=== PATIENT | male | born 1960 | race Caucasian/White ===

== ENCOUNTER → 2018-08-15 | Outpatient (CLI) | payer BC ==
[2018-08-15 07:47] LABS: BASOPHILS # (AUTO) 0.1 (0.0-0.1); BASOPHILS % 1.7 % (0.0-1.0); EOSINOPHILS # (AUTO) 0.1 (0.0-0.4); EOSINOPHILS % 2.3 % (0.0-6.0); HEMATOCRIT 51.8 % (38.2-49.6); HEMOGLOBIN 18.1 g/dL (14.0-18.0); LYMPHOCYTES # (AUTO) 2.4 (1.0-3.2); LYMPHOCYTES % 47.4 % (18.0-39.1); MEAN CORPUSCULAR HEMOGLOBIN 32.4 pg (28-32); MEAN CORPUSCULAR HGB CONC 34.9 g/dL (31-35); MEAN CORPUSCULAR VOLUME 92.8 fL (81-99); MONOCYTES # (AUTO) 0.5 (0.2-0.8); MONOCYTES % 10.3 % (4.4-11.3); NEUTROPHILS % 37.9 % (38.7-80.0); PLATELET COUNT 207 x10e3/uL (140-360); RED BLOOD COUNT 5.58 x10e6/uL (4.3-5.7)
[2018-08-15 08:14] LABS: ALBUMIN 4.3 g/dL (3.5-5.0); ALBUMIN/GLOBULIN RATIO 1.2 (0.8-2.0); ANION GAP 13.8 mmol/L (8-16); CHOL/HDL RATIO 2.7 (3.9-4.7); CREATININE, SERUM 1.24 mg/dL (0.72-1.25); POTASSIUM 3.8 mmol/L (3.5-5.1)
[2018-08-15 08:37] LABS: FREE T4 (FREE THYROXINE) 0.74 ng/dL (0.9-1.8); THYROID STIMULATING HORMONE 0.931 uIU/mL (0.350-4.940)
== END ==
LOC: LAB 07:29
PROVIDERS: ATTEND Family Medicine
DX: Z00.00 Encounter for general adult medical examination without abnormal findings (principal); I10 Essential (primary) hypertension; E29.1 Testicular hypofunction
CPT/HCPCS: 36415; 80053; 80061; 82670; 83690; 84152; 84402; 84439; 84443; 84479; 85025

== ENCOUNTER 2018-11-11 14:21 | Inpatient (IN) | payer BC ==
[~2018-11-11] VITALS: Ht 180.3 cm; Wt 83.9 kg
[2018-11-11] MEDS ORDERED: SODIUM CHLORIDE 0.9% 1000ML 1,000 ML IV STA (14:25)
[2018-11-11] MEDS ORDERED: KETOROLAC TROMETHAMINE 30 MG/ML VIAL ONE (14:28)
[2018-11-11] MEDS ORDERED: ONDANSETRON HCL INJ 2MG/ML 2ML 2 MG/ML VIAL ONE (14:28)
[2018-11-11] MEDS ORDERED: HYDROMORPHONE 2MG/ML 2 MG/ML ML ONE (14:28)
[2018-11-11] MEDS ORDERED: SODIUM CHLORIDE 0.9% 1000ML 1,000 ML ONE (14:29)
[2018-11-11] MEDS ORDERED: ONDANSETRON HCL INJ 2MG/ML 2ML 2 MG/ML VIAL IV NR (14:30)
[2018-11-11] MEDS ORDERED: KETOROLAC TROMETHAMINE 30 MG/ML VIAL IV NR (14:30)
[2018-11-11 14:36] LABS: BASOPHILS # (AUTO) 0.1 (0.0-0.1); EOSINOPHILS % 0.5 % (0.0-6.0); HEMATOCRIT 45.6 % (38.2-49.6); HEMOGLOBIN 15.6 g/dL (14.0-18.0); LYMPHOCYTES % 24.2 % (18.0-39.1); MEAN CORPUSCULAR HEMOGLOBIN 32.4 pg (28-32); MEAN CORPUSCULAR HGB CONC 34.2 g/dL (31-35); MEAN CORPUSCULAR VOLUME 94.6 fL (81-99); MONOCYTES # (AUTO) 0.6 (0.2-0.8); MONOCYTES % 6.7 % (4.4-11.3); NEUTROPHILS # (AUTO) 5.6 (2.1-6.9); NEUTROPHILS % 67.2 % (38.7-80.0); PLATELET COUNT 194 x10e3/uL (140-360); RED BLOOD COUNT 4.82 x10e6/uL (4.3-5.7); RED CELL DISTRIBUTION WIDTH 13.2 % (11.7-14.4)
[2018-11-11] MEDS ORDERED: HYDROMORPHONE 2MG/ML 2 MG/ML ML IV NR (14:45)
[2018-11-11 14:50] LABS: INR 1.08; PROTHROMBIN TIME 14.5 seconds (11.9-14.5)
[2018-11-11 14:51] LABS: PARTIAL THROMBOPLASTIN TIME 27.3 seconds (23.8-35.5)
[2018-11-11 14:52] LABS: ALANINE AMINOTRANSFERASE 18 IU/L (0-55); ALBUMIN 3.8 g/dL (3.5-5.0); ALBUMIN/GLOBULIN RATIO 1.1 (0.8-2.0); ALKALINE PHOSPHATASE 56 IU/L (40-150); ANION GAP 16.1 mmol/L (8-16); BLOOD UREA NITROGEN 17 mg/dL (7-26); BUN/CREATININE RATIO 15 (6-25); CALCIUM 8.7 mg/dL (8.4-10.2); CARBON DIOXIDE 24 mmol/L (22-29); CHLORIDE 106 mmol/L (98-107); CREATINE KINASE 250 IU/L (30-200); CREATININE, SERUM 1.13 mg/dL (0.72-1.25); EST GLOMERULAR FILTRATION RATE > 60 ML/MIN (60-); GLUCOSE 167 mg/dL (74-118); MAGNESIUM 2.5 MG/DL (1.3-2.1); POTASSIUM 4.1 mmol/L (3.5-5.1); SODIUM 142 mmol/L (136-145)
--- NOTE | 2018-11-11 15:05 | NUR ---
placed patient on non-rebreather. patient back in room. family at bedside.
[2018-11-11] MEDS ORDERED: LOW DOSE ASPIRI81 MG PO (15:16)
[2018-11-11] MEDS ORDERED: NP THYROID90 MG PO (15:16)
[2018-11-11] MEDS ORDERED: DIOVAN80 MG PO (15:16)
[2018-11-11] MEDS ORDERED: CARVEDILOL6.25 MG PO (15:16)
--- NOTE | 2018-11-11 15:29 | Diagnostic Imaging Report ---
LEFT SHOULDER X-RAY - 2 VIEWS HISTORY: ^FALL ^[id number] ^[id number] COMPARISON: None available. FINDINGS: Bones: Possible fracture deformity of a mid left rib. Osseous alignment is within normal limits. Joints: The joint spaces are well-maintained. Soft tissues: Extensive subcutaneous air in the left supraclavicular region and along the left chest wall. Linear density along the left lower lobe may represent lung contusion. IMPRESSION: No acute abnormalities of the left shoulder. Extensive subcutaneous emphysema in the left supraclavicular and left chest wall. Possible fracture deformity of the mid left rib. Follow-up CT chest report for further details. Signed by: Dr. Wendy Wynne M.D. on 11/11/2018 3:26 PM
--- NOTE | 2018-11-11 15:33 | Diagnostic Imaging Report ---
EXAMINATION: Head and cervical spine CT without contrast. HISTORY: Status post fall the day before, trauma, pain COMPARISON: None. TECHNIQUE: Multidetector axial images were obtained without contrast from the foramen magnum to the vertex and through the cervical spine. The images were reconstructed using brain and bone algorithms. Thin section brain images were reformatted into coronal and sagittal planes. Dose modulation, iterative reconstruction, and/or weight based adjustment of the mA/kV was utilized to reduce the radiation dose to as low as reasonably achievable. HEAD CT FINDINGS: Skull/difficult/: No lytic or blastic lesions. No fractures. Parenchyma: Normal. No mass, hemorrhage or CT evidence of acute vascular insult. Brain volume: Mild generalized parenchymal volume loss. Ventricles: No hydrocephalus or displacement. Arteries: No density suggestive of thrombus. Dural sinuses: No abnormal density. Extra-axial spaces: No abnormal density. Foramen magnum: No mass, Chiari malformation, or basilar invagination. Sella: No obvious mass. Paranasal/mastoid sinuses: Imaged portions unremarkable. CERVICAL SPINE CT FINDINGS: Alignment:Normal alignment and lordosis. Soft tissues: Prominent subcutaneous emphysema in the left lateral and posterior neck tracking deep into the neck fascial planes to include the prevertebral/retropharyngeal and visceral spaces, extending to the partially visualized upper mediastinum. No discrete cervical tracheal or esophageal injury is seen in the provided images. Vertebrae: Normal height and density. No acute fracture, infection or neoplasm. Degenerative changes: C1-C2: Normal C2-C3: Normal C3-C4: Normal C4-C5: Mild facet arthrosis without stenoses C5-C6: Mild uncovertebral arthrosis without stenosis C6-C7: Mild uncovertebral arthrosis without stenosis C7-T1: Normal IMPRESSION: Head CT: 1. No acute posttraumatic intracranial abnormality, particularly no hemorrhage. 2. Mild generalized parenchymal volume loss. Cervical spine CT: 1. No acute fractures or dislocations. 2. Prominent left/posterior neck subcutaneous emphysema extending into the upper mediastinum, please see dictation of chest CT performed on the same day for further detail. 3. Mild chronic degenerative changes as described. Note: Acute post traumatic spinal cord, vascular or ligamentous injury cannot adequately be assessed with CT. Signed by: Dr. Emerald Keating M.D. on 11/11/2018 3:29 PM
--- NOTE | 2018-11-11 15:49 | Diagnostic Imaging Report ---
EXAM: CT Chest, Abdomen and Pelvis WITH contrast INDICATION: ^TRAUMA PROTOCOL ^[id number] ^[id number] COMPARISON: Left shoulder x-ray 11/11/2018 TECHNIQUE: Chest, abdomen and pelvis were scanned utilizing a multidetector helical scanner from the lung apex to the ischial tuberosities after administration of IV contrast. Coronal and sagittal reformations were obtained. Trauma protocol was performed. Scan was performed during arterial phase through the chest and early portal venous phase through the abdomen and pelvis. No oral contrast was given. IV CONTRAST: 100 mL of Isovue-300 ORAL CONTRAST: None RADIATION DOSE: Total DLP: 1160.5 mGy*cm Estimated effective dose: DLP x 0.015 mSv COMPLICATIONS: None FINDINGS: LINES and TUBES: None. LUNGS AND AIRWAYS: Moderate amount of left lower lobe ground glass opacities consistent with lung contusion. Right lung is clear. PLEURA: Small left pneumothorax measuring up to 1 cm in thickness, mainly surrounding the anterior aspect of the heart. Small left lower hemothorax, measuring up to 1.2 cm in thickness. No effusion on the right. No pneumothorax on the right. HEART AND MEDIASTINUM: Moderate amount of pneumomediastinum extending down to the mid esophagus. No anterior mediastinal hematoma. The thyroid gland is normal. No mediastinal, hilar or axillary lymphadenopathy. The heart is normal in size. There is no pericardial effusion. The thoracic aorta appears normal. The pulmonary arteries are unremarkable. Coronary artery calcifications. The proximal arch branch vessels are patent. No findings to suggest vessel injury surrounding the pneumomediastinum. HEPATOBILIARY: No focal hepatic lesions. No biliary ductal dilation. GALLBLADDER: No radio-opaque stones or sludge. No wall thickening. SPLEEN: No splenomegaly. PANCREAS: No focal masses or ductal dilatation. ADRENALS: No adrenal nodules KIDNEYS/URETERS: Kidneys enhance symmetrically. No hydronephrosis. No cystic or solid mass lesions. No stones. GI TRACT: No abnormal distention, wall thickening, or evidence of bowel obstruction. Appendix is normal. PELVIC ORGANS/BLADDER: Unremarkable. LYMPH NODES: No lymphadenopathy. VESSELS: Unremarkable. PERITONEUM / RETROPERITONEUM: No free air or fluid. BONES: Acute mildly displaced fracture of the lateral aspect of the left sixth rib, better seen on series 5, image 88. There is a small adjacent hematoma in the chest wall, measuring 0.8 cm in thickness without active contrast extravasation. No additional fractures in the chest, abdomen or pelvis. SOFT TISSUES: Extensive subcutaneous emphysema along the left lower neck, left lateral chest wall, and anterior lower right chest wall. There is also moderate amount of subcutaneous air along the left anterior, lateral and posterior abdominal pelvic khan and contraleteral lower anterior chest and upper right abdominal khan. Metallic clips in both anterior pelvic regions near the inguinal canal may relate to hernia repairs. IMPRESSION: 1. Large amount of subcutaneous air along the neck, left anterior and lateral chest, abdominopelvic khan with air extending to the contralateral right lower chest and abdominal khan. 2. Acute mildly displaced fracture of the left sixth rib with associated small left pneumothorax, small left hemothorax, and left lower lobe lung contusion. 3. No mediastinal hematoma or acute aortic traumatic injury on limited evaluation. 4. No acute post traumatic injury in the abdomen and pelvis. These findings were communicated to Grace (nurse practitioner) on 11/11/2018 at 3:35 PM. Signed by: Dr. Wendy Wynne M.D. on 11/11/2018 3:45 PM
--- NOTE | 2018-11-11 15:50 | Diagnostic Imaging Report ---
EXAMINATION: CHEST SINGLE (PORTABLE) INDICATION: ^SMALL TRAUMATIC PNEUMO, ASSESS WORSENING ^[id number] ^[id number] COMPARISON: Left shoulder x-ray 11/11/[address] chest abdomen and pelvis 11/11/2018 FINDINGS: AP view TUBES and LINES: None. LUNGS: Lungs are well inflated. Left lower lobe lung contusion. Right lung is clear. PLEURA: Small left pneumothorax better seen on CT chest. HEART AND MEDIASTINUM: Extensive subcutaneous air in the left supraclavicular region and left chest wall. Moderate amount of pneumomediastinum is better seen on CT. The cardiac silhouette is within normal limits. BONES AND SOFT TISSUES: Fracture deformity of the left sixth rib. Subcutaneous air along the left chest wall and supraclavicular region. UPPER ABDOMEN: No free air under the diaphragm. IMPRESSION: Posttraumatic abnormality and on the left chest including left sixth rib fracture, subcutaneous air, small pneumothorax, lung contusion, and pneumomediastinum, better seen on sequence CT chest. Signed by: Dr. Wendy Wynne M.D. on 11/11/2018 3:47 PM
[2018-11-11] MEDS ORDERED: ONDANSETRON HCL INJ 2MG/ML 2ML 2 MG/ML VIAL IV PRN (16:00)
--- OUTSIDE RECORDS SUMMARY | 2018-11-11 16:10 | XMS REPORT ---
Author Author [facility] Address Unknown Phone Unavailable Care Team Providers Care Blending Operator Name Role Phone Catia KEITH Unavailable Unavailable Problems This patient has no known problems. Allergies, Adverse Reactions, Alerts This patient has no known allergies or adverse reactions. Medications This patient has no known medications. Results Test Description Test Time Test Comments Text Results Atomic Results Result Comments CHEST SINGLE (PORTABLE) 2018-11-11 15:45:00 [place] [address] Patient Name: GEO DURAND MR #: [id number] : 1960 Age/Sex: 58/M Req #: [id number] Adm Physician: Ordered by: ELVIS KEITH MD Report #: [id number] Location: ER Room/Bed: Procedure: [id number] DX/CHEST SINGLE (PORTABLE) Exam Date: 11/11/18 Exam Time: 1521 REPORT STATUS: Signed EXAMINATION: CHEST SINGLE (PORTABLE) INDIC ATION: SMALL TRAUMATIC PNEUMO, ASSESS WORSENING [id number] COMPARISON: Left shoulder x-ray 11/11/[address] chest abdomen and pelvis 11/11/2018 FINDINGS: AP view TUBES and LINES: None. LUNGS: Lungs are well inflated. Left lower lobe lung contusion. Right lung is clear. PLEURA: Small left pneumothorax better seen on CT chest. HEART AND MEDIASTINUM: Extensive subcutaneous air in the left supraclavicular region and left chest wall. Moderate amount of pneumomediastinum is better seen on CT. The cardiac silhouette is within normal limits. BONES AND SOFT TISSUES: Fracture deformity of the left sixth rib. Subcutaneous air along the left chest wall and supraclavicular region. UPPER ABDOMEN: No free air under the diaphragm. IMPRESSION: Posttraumatic abnormality and on the left chest including left sixth rib fracture, subcutaneous air, small pneumothorax, lung contusion, and pneumomediastinum, better seen on sequence CT chest. Signed by: Dr. Stefani Magallanes M.D. on 11/11/2018 3:47 PM Dictated By: STEFANI MAGALLANES MD 46 Transcribed By: JES on 11/11/181546 COPY TO: ELVIS KEITH MD CT ABDOMEN/PELVIS W 2018-11-11 15:26:00 [place] [address] Patient Name: GEO DURAND MR #: [id number] : 1960 Age/Sex: 58/M Req #: [id number] Adm Physician: Ordered by: ELVIS KEITH MD Report #: [id number] Location: ER Room/Bed: Procedure: [id number] CT/CT ABDOMEN/PELVIS W Exam Date: 11/11/18 Exam Time: 1436 REPORT STATUS: Signed EXAM: CT Chest, Abdomen and Pelvis WITH contrast I NDICATION: TRAUMA PROTOCOL [id number] COMPARISON: Left shoulder x-ray 11/11/2018 TECHNIQUE: Chest, abdomen and pelvis were scanned utilizing a multidetector helical scanner from the lung apex to the ischial tuberosities after administration of IV contrast. Coronal and sagittal reformations were obtained. Trauma protocol was performed. Scan was performed during arterial phase through the chest and early portal venous phase through the abdomen and pelvis. No oral contrast was given. IV CONTRAST: 100 mL of Isovue-300 ORAL CONTRAST: None RADIATION DOSE: Total DLP: 1160.5 mGy*cm Estimated effective dose: DLP x 0.015 mSv COMPLICATIONS: None FINDINGS: LINES and TUBES: None. LUNGS AND AIRWAYS: Moderate amount of left lower lobe ground glass opacities consistent with lung contusion. Right lung is clear. PLEURA: Small left pneumothorax measuring up to 1 cm in thickness, mainly surrounding the anterior aspect of the heart. Small left lower hemothorax, measuring up to 1.2 cm in thickness. No effusion on the right. No pneumothorax on the right. HEART AND MEDIASTINUM: Moderate amount of pneumomediastinum extending down to the mid esophagus. No anterior mediastinal hematoma. The thyroid gland is normal. No mediastinal, hilar or axillary lymphadenopathy. The heart is normal in size. There is no pericardial effusion. The thoracic aorta appears normal. The pulmonary arteries are unremarkable. Coronary artery calcifications. The proximal arch branch vessels are patent. No findings to suggest vessel injury surrounding the pneumomediastinum. HEPATOBILIARY: No focal hepatic lesions. No biliary ductal dilation. GALLBLADDER: No radio-opaque stones or sludge. No wall thickening. SPLEEN: No splenomegaly. PANCREAS: No focal masses or ductal dilatation. ADRENALS: No adrenal nodules KIDNEYS/URETERS: Kidneys enhance symmetrically. No hydronephrosis. No cystic or solid mass lesions. No stones. GI TRACT: No abnormal distention, wall thickening, or evidence of bowel obstruction. Appendix is normal. PELVIC ORGANS/BLADDER: Unremarkable. LYMPH NODES: No lymphadenopathy. VESSELS: Unremarkable. PERITONEUM / RETROPERITONEUM: No free air or fluid. BONES: Acute mildly displaced fracture of the lateral aspect of the left sixth rib, better seen on series 5, image 88. There is a small adjacent hematoma in the chest wall, measuring 0.8 cm in thickness without active cont rast extravasation. No additional fractures in the chest, abdomen or pelvis. SOFT TISSUES: Extensive subcutaneous emphysema along the left lower neck, left lateral chest wall, and anterior lower right chest wall. There is also moderate amount of subcutaneous air along the left anterior, lateral and posterior abdominal pelvic khan and contraleteral lower anterior chest and upper right abdominal khan. Metallic clips in both anterior pelvic regions near the inguinal canal may relate to hernia repairs. IMPRESSION: 1. Large amount of subcutaneous air along the neck, left anterior and lateral chest, abdominopelvic khan with air extending to the contralateral right lower chest and abdominal khan. 2. Acute mildly displaced fracture of the left sixth rib with associated small left pneumothorax, small left hemothorax, and left lower lobe lung contusion. 3. No mediastinal hematoma or acute aortic traumatic injury on limited evaluation. 4. No acute post traumatic injury in the abdomen and pelvis. These findings were communicated to Mrs. Edwards (nurse practitioner) on 11/11/2018 at 3:35 PM. Signed by: Dr. Stefani Magallanes M.D. on 11/11/2018 3:45 PM Dictated By: STEFANI MAGALLANES MD 154 Transcribed By: JES on 11/11/181544 COPY TO: ELVIS KEITH MD CT CHEST W 2018-11-11 15:26:00 [place] [address] Patient Name: GEO DURAND MR #: [id number] : 1960 Age/Sex: 58/M Req #: [id number] Adm Physician: Ordered by: ELVIS KEITH MD Report #: [id number] Location: ER Room/Bed: Procedure: [id number] CT/CT CHEST W Exam Date: 11/11/18 Exam Time: 1436 REPORT STATUS: Signed EXAM: CT Chest, Abdomen and Pelvis WITH contrast INDICATION: TRAUMA PROTOCOL [id number] COMPARISON: Left shoulder x-ray 11/11/2018 TECHNIQUE: Chest, abdomen and pelvis were scanned utilizing a multidetector helical scanner from the lung apex to the ischial tuberosities after administration of IV contrast. Coronal and sagittal reformations were obtained. Trauma protocol was performed. Scan was performed during arterial phase through the chest and early portal venous phase through the abdomen and pelvis. No oral contrast was given. IV CONTRAST: 100 mL of Isovue-300 ORAL CONTRAST: None RADIATION DOSE: Total DLP: 1160.5 mGy*cm Estimated effective dose: DLP x 0.015 mSv COMPLICATIONS: None FINDINGS: LINES and TUBES: None. LUNGS AND AIRWAYS: Moderate amount of left lower lobe ground glass opacities consistent with lung contusion. Right lung is clear. PLEURA: Small left pneumothorax measuring up to 1 cm in thickness, mainly surrounding the anterior aspect of the heart. Small left lower hemothorax, measuring up to 1.2 cm in thickness. No effusion on the right. No pneumothorax on the right. HEART AND MEDIASTINUM: Moderate amount of pneumomediastinum extending down to the mid esophagus. No anterior mediastinal hematoma. The thyroid gland is normal. No mediastinal, hilar or axillary lymphadenopathy. The heart is normal in size. There is no pericardial effusion. The thoracic aorta appears normal. The pulmonary arteries are unremarkable. Coronary artery calcifications. The proximal arch branch vessels are patent. No findings to suggest vessel injury surrounding the pneumomediastinum. HEPATOBILIARY: No focal hepatic lesions. No biliary ductal dilation. GALLBLADDER: No radio-opaque stones or sludge. No wall thickening. SPLEEN: No splenomegaly. PANCREAS: No focal masses or ductal dilatation. ADRENALS: No adrenal nodules KIDNEYS/URETERS: Kidneys enhance symmetrically. No hydronephrosis. No cystic or solid mass lesions. No stones. GI TRACT: No abnormal distention, wall thickening, or evidence of bowel obstruction. Appendix is normal. PELVIC ORGANS/BLADDER: Unremarkable. LYMPH NODES: No lymphadenopathy. VESSELS: Unremarkable. PERITONEUM / RETROPERITONEUM: No free air or fluid. BONES: Acute mildly displaced fracture of the lateral aspect of the left sixth rib, better seen on series 5, image 88. There is a small adjacent hematoma in the chest wall, measuring 0.8 cm in thickness without active contrast extravasation. No additional fractures in the chest, abdomen or pelvis. SOFT TISSUES: Extensive subcutaneous emphysema along the left lower neck, left lateral chest wall, and anterior lower right chest wall. There is also moderate amount of subcutaneous air along the left anterior, lateral and posterior abdominal pelvic khan and contraleteral lower anterior chest and upper right abdominal khan. Metallic clips in both anterior pelvic regions near the inguinal canal may relate to hernia repairs. IMPRESSION: 1. Large amount of subcutaneous air along the neck, left anterior and lateral chest, abdominopelvic khan with air extending to the contralateral right lower chest and abdominal khan. 2. Acute mildly displaced fracture of the left sixth rib with associated small left pneumothorax, small left hemothorax, and left lower lobe lung contusion. 3. No mediastinal hematoma or acute aortic traumatic injury on limited evaluation. 4. No acute post traumatic injury in the abdomen and pelvis. These findings were communicated to Mrs. Edwards (nurse practitioner) on 11/11/2018 at 3:35 PM. Signed by: Dr. Stefani Magallanes M.D. on 11/11/2018 3:45 PM Dictated By: STEFANI MAGALLANES MD 1545 Transcribed By: JES on 11/11/18 1545 COPY TO: ELVIS KEITH MD CT CERVICAL SPINE WO 2018-11-11 15:22:00 [place] [address] Patient Name: GEO DURAND MR #: [id number] : 1960 Age/Sex: 58/M Req #: [id number] Adm Physician: Ordered by: ELVIS KEITH MD Report #: [id number] Location: ER Room/Bed: Procedure: [id number] CT/CT CERVICAL SPINE WO Exam Date: 11/11/18 Exam Time: 1436 REPORT STATUS: Signed EXAMINATION: Head and cervical spine CT without contras t. HISTORY: Status post fall the day before, trauma, pain COMPARISON: None. TECHNIQUE: Multidetector axial images were obtained without contrast from the foramen magnum to the vertex and through the cervical spine. The images were reconstructed using brain and bone algorithms. Thin section brain images were reformatted into coronal and sagittal planes. Dose modulation, iterative reconstruction, and/or weight based adjustment of the mA/kV was utilized to reduce the radiation dose to as low as reasonably achievable. HEAD CT FINDINGS: Skull/difficult/: No lytic or blastic lesions. No fractures. Parenchyma: Normal. No mass, hemorrhage or CT evidence of acute vascular insult. Brain volume: Mild generalized parenchymal volume loss. Ventricles: No hydrocephalus or displacement. Arteries: No density suggestive of thrombus. Dural sinuses: No abnormal density. Extra-axial spaces: No abnormal density. Foramen magnum: No mass, Chiari malformation, or basilar invagination. Sella: No obvious mass. Paranasal/mastoid sinuses: Imaged portions unremarkable. CERVICAL SPINE CT FINDINGS: Alignment:Normal alignment and lordosis. Soft tissues: Prominent subcutaneous emphysema in the left lateral and posterior neck tracking deep into the neck fascial planes to include the preve rtebral/retropharyngeal and visceral spaces, extending to the partially visualized upper mediastinum. No discrete cervical tracheal or esophageal injury is seen in the provided images. Vertebrae: Normal height and density. No acute fracture, infection or neoplasm. Degenerative changes: C1-C2: Normal C2-C3: Normal C3-C4: Normal C4-C5: Mild facet arthrosis without stenoses C5-C6: Mild uncovertebral arthrosis without stenosis C6-C7: Mild uncovertebral arthrosis without stenosis C7-T1: Normal IMPRESSION: Head CT: 1. No acute posttraumatic intracranial abnormality, particularly no hemorrhage. 2. Mild generalized parenchymal volume loss. Cervical spine CT: 1. No acute fractures or dislocations. 2. Prominent left/posterior neck subcutaneous emphysema extending into the upper mediastinum, please see dictation of chest CT performed on the same day for further detail. 3. Mild chronic degenerative changes as described. Note: Acute post traumatic spinal cord, vascular or ligamentous injury cannot adequately be assessed with CT. Signed by: Dr. Radha Keating M.D. on 11/11/2018 3:29 PM Dictated By: RADHA KEATING MD 152 Transcribed By: JES on 11/11/18 1529 COPY TO: ELVIS KEITH MD CT BRAIN WO 2018-11-11 15:22:00 [place] [id number] [place] [id number] Patient Name: GEO DURAND MR #: [id number] : 1960 Age/Sex: 58/M Req #: [id number] Adm Physician: Ordered by: ELVIS KEITH MD Report #: [id number] Location: ER Room/Bed: Procedure: [id number] CT/CT BRAIN WO Exam Date: 11/11/18 Exam Time: 1436 REPORT STATUS: Signed EXAMINATION: Head and cervical spine CT without contrast. HISTORY: Status post fall the day before, trauma, pain COMPARISON: None. TECHNIQUE: Multidetector axial images were obtained without contrast from the foramen magnum to the vertex and through the cervical spine. The images were reconstructed using brain and bone algorithms. Thin section brain images were reformatted into coronal and sagittal planes. Dose modulation, iterative reconstruction, and/or weight based adjustment of the mA/kV was utilized to reduce the radiation dose to as low as reasonably achievable. HEAD CT FINDINGS: Skull/difficult/: No lytic or blastic lesions. No fractures. Parenchyma: Normal. No mass, hemorrhage or CT evidence of acute vascular insult. Brain volume: Mild generalized parenchymal volume loss. Ventricles: No hydrocephalus or displacement. Arteries: No density suggestive of thrombus. Dural sinuses: No abnormal density. Extra-axial spaces: No abnormal density. Foramen magnum: No mass, Chiari malformation, or basilar invagination. Sella: No obvious mass. Paranasal/mastoid sinuses: Imaged portions unremarkable. CERVICAL SPINE CT FINDINGS: Alignment:Normal alignment and lordosis. Soft tissues: Prominent subcutaneous emphysema in the left lateral and posterior neck tracking deep into the neck fascial planes to include the prevertebral/r etropharyngeal and visceral spaces, extending to the partially visualized upper mediastinum. No discrete cervical tracheal or esophageal injury is seen in the provided images. Vertebrae: Normal height and density. No acute fracture, infection or neoplasm. Degenerative changes: C1-C2: Normal C2-C3: Normal C3-C4: Normal C4-C5: Mild facet arthrosis without stenoses C5-C6: Mild uncovertebral arthrosis without stenosis C6-C7: Mild uncovertebral arthrosis without stenosis C7-T1: Normal IMPRESSION: Head CT: 1. No acute posttraumatic intracranial abnormality, particularly no hemorrhage. 2. Mild generalized parenchymal volume loss. Cervical spine CT: 1. No acute fractures or dislocations. 2. Prominent left/posterior neck subcutaneous emphysema extending into the upper mediastinum, please see dictation of chest CT performed on the same day for further detail. 3. Mild chronic degenerative changes as described. Note: Acute post traumatic spinal cord, vascular or ligamentous injury cannot adequately be assessed with CT. Signed by: Dr. Radha Keating M.D. on 11/11/2018 3:29 PM Dictated By: RADHA KEATING MD 1529 Transcribed By: JES on 11/11/18 1529 COPY TO: ELVIS KEITH MD SHOULDER LEFT COMPLETE 2018-11-11 15:02:00 [place] [address] Patient Name: GEO DURAND MR #: [id number] : 1960 Age/Sex: 58/M Req #: [id number] Adm Physician: Ordered by: ELVIS KEITH MD Report #: [id number] Location: Room/Bed: Procedure: [id number] DX/SHOULDER LEFT COMPLETE Exam Date: 11/11/18 Exam Time: 1450 REPORT STATUS: Signed LEFT SHOULDER X-RAY - 2 VIEWS HISTORY: FALL [id number] COMPARISON: None available. FINDINGS: Bones: Possible fracture deformity of a mid left rib. Osseous alignment is within normal limits. Joints: The joint spaces are well-maintained. Soft tissues: Extensive subcutaneous air in the left supraclavicular region and along the left chest wall. Linear density along the left lower lobe may represent lung contusion. IMPRESSION: No acute abnormalities of the left shoulder. Extensive subcutaneous emphysema in the left supraclavicular and left chest wall. Possible fracture deformity of the mid left rib. Follow-up CT chest report for further details. Signed by: Dr. Stefani Magallanes M.D. on 11/11/2018 3:26 PM Dictated By: STEFANI MAGALLANES MD 1526 Transcribed By: JES on 11/11/18 1526 COPY TO: ELVIS KEITH MD
[2018-11-11] MEDS: SODIUM CHLORIDE 0.9% 1000ML 1,000 ML IV SCH (16:21)
[2018-11-11] MEDS: HYDROMORPHONE 2MG/ML 2 MG/ML ML IV PRN ×2 (16:21→22:09)
--- NOTE | 2018-11-11 16:30 | NUR ---
RECEIVED PATIENT FROM ER. PATIENT A/O X3, EVEN RESPIRATIONS NO SIGNS OF DISTRESS. RIGHT AC IV WITH NS @ 125 CC/HR. NO DISCOMFORT AT THIS TIME. VITAL SIGNS STABLE. SKIN INTACT, NO EDEMA. TELE #11 SR. CALL LIGHT IN REACH WILL CONTINUE TO MONITOR.
[2018-11-11 16:56] VITALS: BP 148/84
[2018-11-11 17:00] VITALS: BP 148/84
[2018-11-11 17:07] VITALS: BP 148/84
--- NOTE | 2018-11-11 18:44 | Diagnostic Imaging Report ---
EXAMINATION: CHEST SINGLE (PORTABLE) INDICATION: ^AT 6PM, COMPARE PNEUMOTHORAX ^[id number] ^1803 COMPARISON: Chest radiograph 11/11/2018 1520 3:00 PM FINDINGS: AP view TUBES and LINES: None. LUNGS: Lungs are well inflated. Left lower lobe lung contusion is unchanged. Right lung is clear. PLEURA: Small left apical pneumothorax, decreased. Small left hemothorax is not well-visualized on this exam. HEART AND MEDIASTINUM: Small pneumomediastinum is unchanged. Cardiac silhouette is stable. BONES AND SOFT TISSUES: No acute osseous lesion. Persistent large amount of subcutaneous air along the supraclavicular region and left chest wall. UPPER ABDOMEN: No free air under the diaphragm. IMPRESSION: Small left apical pneumothorax, appear decreased since prior exam. Otherwise, no interval change. Signed by: Dr. Wendy Wynne M.D. on 11/11/2018 6:41 PM
--- NOTE | 2018-11-11 19:06 | NUR ---
SPOKE TO DR. Meet HAMMONDS AT THIS TIME. NEW ORDERS RCV FOR PORTABLE CHEST XRAY AT 2200 AND CHEST 2VIEWS AT 0600.
--- NOTE | 2018-11-11 19:34 | NUR ---
SPOKE TO DR. MADRIGAL AT THIS TIME REGARDING PT C/O PAIN. NEW ORDER FOR LIDOCAINE PATCH RCV.
[2018-11-11] MEDS ORDERED: LIDOCAINE 5% PATCH TP SCH (19:45)
[2018-11-11 20:00] VITALS: BP_SYST 148; BP_SYST 157; BP_DIAS 84; BP_DIAS 87
--- NOTE | 2018-11-11 20:08 | NUR ---
SPOKE TO DR. CAMPOS AT THIS TIME. NEW ORDERS RCV FOR PRN ATIVAN IV AND TO DC TELE.
--- NOTE | 2018-11-11 21:08 | Consultation ---
DATE OF CONSULTATION: Pulmonary Consultation REASON FOR THE CONSULT: Pneumothorax. 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 He was running after his son and fell on the shoulder resulting in some pain in the rib. When he came in, he had subcutaneous emphysema and CT of the chest showed small pneumothorax. All his labs are within normal limits. I was consulted for pneumothorax. REVIEW OF SYSTEMS: Pain around the ribs 5 and 7. Denies any nausea, vomiting, or diarrhea. PAST MEDICAL HISTORY: None. PHYSICAL EXAMINATION: VITAL SIGNS: Temperature 98.5, pulse of 96, blood pressure 156/100, respiratory rate of 15 to 20, O2 saturation 94%. CHEST: Subcutaneous emphysema and crepitus. Mildly reduced air entry on the left side, otherwise clear. HEART: S1, S2 audible. ABDOMEN: Soft. EXTREMITIES: No pedal edema. NEUROLOGIC: Awake and alert. LABORATORY DATA: White count of 8000, hemoglobin 15, platelets 194. Chemistries within normal limits. CT of the chest official report is pending. I have reviewed the images, it is showing evidence of very small pneumothorax and pneumomediastinum. ASSESSMENT: A 58-year-old male traumatic subcutaneous emphysema, possible rib fracture. However, the official report of CT is pending. PLAN: I have discussed the case with Dr. Cory Reis as well. The patient has mild to moderate subcutaneous emphysema. He is not in respiratory distress. Continue the patient on non-rebreather. Pneumothorax is very small, however, we will need followup chest x-rays. If it gets bigger, we will need a chest tube. No need for any intervention for pneumomediastinum. This was discussed with Dr. Reis. I have asked Dr. Jose to consult for Dr. Reis as well. MD RORY Collazo/JEEVAN /[id number]
--- NOTE | 2018-11-11 22:24 | Diagnostic Imaging Report ---
EXAMINATION: CHEST SINGLE (PORTABLE) COMPARISON: Chest x-ray 1814 hours, CT chest 11/11/2018 INDICATION: Pneumothorax follow-up ^pneumothorax ^[id number] ^2154 DISCUSSION: Frontal view of the chest obtained at 2147 hours. HEART AND MEDIASTINUM: Cardiomediastinal silhouette is stable. Mediastinal air identified on CT is not visible by x-ray. LINES: None. LUNGS: Left basilar atelectasis or pulmonary contusion is stable. Right lung is clear PLEURA: Medial left pneumothorax is now visible. Left apical pneumothorax is redemonstrated. There is approximately 14 mm of separation between the visceral or parietal pleura (previously, 6 mm). Small left hemothorax. BONES AND SOFT TISSUES: Diffuse subcutaneous emphysema of the lower left neck and left chest is stable. Stable fracture of the left sixth rib. IMPRESSION: Enlarging left apical pneumothorax. Medial pneumothorax is now visible. Small left hemothorax. Stable subcutaneous emphysema. Signed by: Dr. Sid Gonzalez MD on 11/11/2018 10:21 PM
[2018-11-11 23:28] LABS: CREATINE KINASE MB 1.2 ng/mL (0-5.0)
[2018-11-12] VITALS (7 sets, daily range): BP systolic 130–149; BP diastolic 55–98
--- NOTE | 2018-11-12 | NUR ---
DR. CAMPOS DOING ROUNDS AT THIS TIME. SAID OK TO CONTINUE HOME MEDS
[2018-11-12] MEDS: SODIUM CHLORIDE 0.9% 1000ML 1,000 ML IV SCH ×4 (00:03→20:21)
[2018-11-12] MEDS: LORAZEPAM INJ 2 MG/ML VIAL IV PRN ×4 (00:03→22:27)
[2018-11-12] MEDS: HYDROMORPHONE 2MG/ML 2 MG/ML ML IV PRN ×4 (03:40→20:18)
--- NOTE | 2018-11-12 06:55 | NUR ---
SPOKE TO DR. MADRIGAL AT THIS TIME. NEW ORDER RCV FOR CT CHEST WO
--- NOTE | 2018-11-12 06:59 | Diagnostic Imaging Report ---
EXAMINATION: CHEST 2 VIEWS INDICATION: Pneumothorax follow-up ^pneumothorax ^[id number] ^0630 COMPARISON: Chest x-ray 11/11/2018 FINDINGS: PA and lateral views TUBES and LINES: None. LUNGS: Left pneumothorax is redemonstrated. At the apex, there is 3.3 cm of separation between the visceral and parietal pleura (previously, 1.4 cm). Small left hydrothorax is similar. Subsegmental atelectasis in the left lung base and in the right hilar region. HEART AND MEDIASTINUM: Stable and midline. BONES AND SOFT TISSUES: Left rib fracture is stable. Diffuse subcutaneous emphysema is similar. UPPER ABDOMEN: No free air under the diaphragm. IMPRESSION: Continued enlargement of left hydropneumothorax without evidence of tension. Tube decompression is recommended. Small left pneumothorax. Signed by: Dr. Sid Gonzalez MD on 11/12/2018 6:56 AM
--- NOTE | 2018-11-12 07:07 | NUR ---
PAGED DR. HAMMONDS REGARDING WORSENING PNEUMOTHORAX.
[2018-11-12 07:09] LABS: BASOPHILS # (AUTO) 0.1 (0.0-0.1); EOSINOPHILS # (AUTO) 0.2 (0.0-0.4); EOSINOPHILS % 2.5 % (0.0-6.0); HEMATOCRIT 40.8 % (38.2-49.6); HEMOGLOBIN 13.9 g/dL (14.0-18.0); LYMPHOCYTES # (AUTO) 2.3 (1.0-3.2); LYMPHOCYTES % 34.3 % (18.0-39.1); MEAN CORPUSCULAR HEMOGLOBIN 32.3 pg (28-32); MEAN CORPUSCULAR HGB CONC 34.1 g/dL (31-35); MEAN CORPUSCULAR VOLUME 94.9 fL (81-99); MONOCYTES # (AUTO) 0.5 (0.2-0.8); NEUTROPHILS # (AUTO) 3.7 (2.1-6.9); NEUTROPHILS % 54.9 % (38.7-80.0); PLATELET COUNT 170 x10e3/uL (140-360)
[2018-11-12 07:42] LABS: ALANINE AMINOTRANSFERASE 17 IU/L (0-55); ALBUMIN 3.5 g/dL (3.5-5.0); ALBUMIN/GLOBULIN RATIO 1.1 (0.8-2.0); ALKALINE PHOSPHATASE 50 IU/L (40-150); BLOOD UREA NITROGEN 13 mg/dL (7-26); BUN/CREATININE RATIO 15 (6-25); CALCIUM 7.7 mg/dL (8.4-10.2); CARBON DIOXIDE 25 mmol/L (22-29); CHLORIDE 107 mmol/L (98-107); CREATININE, SERUM 0.87 mg/dL (0.72-1.25); EST GLOMERULAR FILTRATION RATE > 60 ML/MIN (60-); GLUCOSE 82 mg/dL (74-118); SODIUM 139 mmol/L (136-145)
--- NOTE | 2018-11-12 07:43 | NUR ---
RECEIVED PATIENT AND WALKING ROUNDS COMPLETE. PATIENT AWAKE SITTING UP IN BED AT THIS TIME, NO SIGNS OF DISTRESS. CALL LIGHT IN REACH WILL CONTINUE TO MONITOR.
[2018-11-12] MEDS ORDERED: LIDOCAINE HCL 1% 2 ML AMP INJ ONE (07:45)
--- NOTE | 2018-11-12 07:51 | Diagnostic Imaging Report ---
EXAM: CT Chest without contrast INDICATION: Pneumothorax. COMPARISON: Chest radiograph 11/12/2018. CT chest 11/11/2018. TECHNIQUE: Chest was scanned utilizing a multidetector helical scanner from the lung apex through the level of the adrenal glands without administration of IV contrast. Coronal and sagittal reformations were obtained. Routine protocol was performed. RADIATION DOSE: Total DLP: 558.8 mGy*cm Dose modulation, iterative reconstruction, and/or weight based adjustment of the mA/kV was utilized to reduce the radiation dose to as low as reasonably achievable. COMPLICATIONS: None FINDINGS: LINES/ TUBES: None. LUNGS AND AIRWAYS: The central airways are patent. Moderate left lower lobe groundglass opacities, consistent with lung contusion. Interval decrease in aeration in the left lower lobe and lingula with partial atelectasis. Minimal subsegmental atelectasis in the right middle lobe and right lower lobe. PLEURA: Large left-sided predominantly air-filled hydropneumothorax. Appearance is similar to that of chest radiograph performed on 11/12/2018, with an air gap measuring up to 3.5 cm. There is a small left basilar layering pleural effusion/hemothorax. HEART AND MEDIASTINUM: No evidence of lymphadenopathy. Again noted is moderate pneumomediastinum. The thyroid gland is unremarkable. No cardiomegaly or pericardial effusion. Coronary atherosclerosis. UPPER ABDOMEN: Limited non-contrast views of the upper abdominal viscera are unremarkable. BONES: Unchanged appearance of acute mildly displaced fracture of the left lateral sixth rib with small adjacent hematoma. SOFT TISSUES: Extensive left-sided lower neck and chest wall and back subcutaneous emphysema, extending into the partially visualized left lateral abdominal wall soft tissues. IMPRESSION: Large left hydropneumothorax without evidence of tension. The appearance is similar to chest radiograph on 11/12/2018, but increased in size from chest radiographs on 11/11/2018, Extensive left sided subcutaneous emphysema and mildly displaced left lateral sixth rib fracture as above. Signed by: Dr. Angeline Banegas MD on 11/12/2018 7:48 AM
--- NOTE | 2018-11-12 07:55 | NUR ---
SPOKE WITH DR. HAMMONDS REGARDING CHEST CT. CHEST TUBE WILL BE PLACED TODAY. CALL LIGHT IN REACH WILL CONTINUE TO MONITOR.
[2018-11-12 08:01] LABS: CREATINE KINASE 230 IU/L (30-200)
[2018-11-12] MEDS ORDERED: LIDOCAINE HCL 2% LOCAL 20 ML VIAL ONE (08:03)
[2018-11-12] MEDS ORDERED: LIDOCAINE HCL 2% LOCAL 20 ML VIAL INJ ONE (08:15)
[2018-11-12] MEDS ORDERED: HYDROCODONE/APAP 7.5MG-325MG 1 EA TAB PO PRN (08:45)
[2018-11-12] MEDS: KETOROLAC TROMETHAMINE 30 MG/ML VIAL IV PRN (08:46)
--- NOTE | 2018-11-12 08:56 | Diagnostic Imaging Report ---
EXAMINATION: CHEST SINGLE (PORTABLE) INDICATION: Status post chest tube placement COMPARISON: Chest radiograph 11/12/[address] chest 11/12/2018. FINDINGS: TUBES and LINES: Interval placement of a left upper chest tube. There is an acute angulation near the distal catheter. LUNGS: Interval increase in aeration of the left lung status post chest tube placement. Patchy opacities in the left lower lung. The right lung is clear. PLEURA: Interval decrease in size of left-sided pneumothorax with a small medial component, measuring up to 0.8 cm. HEART AND MEDIASTINUM: The cardiomediastinal silhouette is unremarkable. BONES AND SOFT TISSUES: Persistent extensive subcutaneous emphysema along the left lateral chest wall. Unchanged appearance of acute displaced left lateral sixth rib fracture. UPPER ABDOMEN: No free air under the diaphragm. IMPRESSION: Interval placement of a left-sided chest tube with decreased left-sided pneumothorax, measuring up to 0.8 cm medially. Improved aeration in the left lung. The distal aspect of the catheter demonstrates an acute angulation, suggest clinical correlation for kinking. Opacities in the left lower lung, consistent with contusion and atelectasis, as seen on CT chest from 11/12/2018. Signed by: Dr. Angeline Banegas MD on 11/12/2018 8:52 AM
[2018-11-12] MEDS: CARVEDILOL 3.125 MG TAB PO SCH (09:00)
[2018-11-12] MEDS ORDERED: NON-FORMULARY MEDICATION (Thyroid,Pork (Np Thyroid) 90 MG) PO SCH (09:00)
[2018-11-12] MEDS: THYROID 60 MG TAB PO SCH (09:00)
[2018-11-12] MEDS ORDERED: NON-FORMULARY MEDICATION (Aspirin (Low Dose Aspirin Ec) 81 MG) PO SCH (09:00)
[2018-11-12] MEDS ORDERED: NON-FORMULARY MEDICATION (Carvedilol 6.25 MG) PO SCH (09:00)
[2018-11-12] MEDS ORDERED: ASPIRIN 81 MG ENTERIC COATED PO SCH (09:00)
[2018-11-12] MEDS: VALSARTAN 80 MG TAB PO SCH (09:00)
--- NOTE | 2018-11-12 09:30 | NUR ---
CHEST TUBE IN PLACE CONNECTED TO SUCTION. VITALS STABLE, NO SIGNS OF DISTRESS. CALL LIGHT IN REACH WILL CONTINUE TO MONITOR.
--- NOTE | 2018-11-12 12:00 | Consultation ---
DATE OF CONSULTATION: 11/12/2018 CONSULTING PHYSICIAN: Tk Vasquez, Interventional Cardiology. REASON FOR CONSULTATION: Shortness of breath. 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 Fall was left lateral and resulted in some focal area of discomfort. Later in the evening, he was found to have crepitus in his lateral chest associated with worsening discomfort and shortness of breath, reason why he went to the ER for further evaluation. In the ER, he was found to have on imaging studies, a small pneumothorax for which he was admitted for further observation and placed on oxygen. He also was noted to have small amount of pneumomediastinum. We were consulted to further evaluate. On telemetry, he has been in sinus rhythm. Followup imaging studies revealed large left hydropneumothorax without evidence of tension, increase in size from previous day, and extensive left-sided subcutaneous emphysema with mildly displaced left lateral sixth rib fracture. Followup imaging reveals no evidence of lymphadenopathy and again noted moderate pneumomediastinum. Thyroid gland unremarkable. No cardiomegaly or pericardial effusion. Coronary atherosclerosis described. Echocardiogram reviewed, shows normal four chamber size, mild left ventricular hypertrophy, left ventricular ejection fraction of 65% to 70%, trivial pericardial effusion, normal size IVC, no evidence RV free wall diastolic collapse or RA free wall systolic collapse. He felt somewhat anxious and pleuritic-type chest discomfort at this point after chest tube was placed this a.m. A 12-system review is negative except for as noted above. ALLERGIES: NO KNOWN DRUG ALLERGIES. PAST MEDICAL HISTORY: Hypertension, otherwise unremarkable. SOCIAL HISTORY: No smoking, alcohol, or drugs. FAMILY HISTORY: Good support. Noncontributory. PHYSICAL EXAMINATION: VITAL SIGNS: Temperature 96.5, heart rate 68, respiratory rate 20, blood pressure 145/55, and O2 saturation 95% on non-rebreather face mask. GENERAL: No acute distress. NECK: No JVD. CHEST: Clear to auscultation with left anterior chest tube in place. CARDIOVASCULAR: Regular rate and rhythm. Normal S1 and S2. No S3 or S4. No murmurs or rubs. ABDOMEN: Soft, nontender, and nondistended. EXTREMITIES: No edema. CARDIOVASCULAR MEDICATIONS: Reviewed. Sodium chloride IV, ketorolac, hydromorphone p.r.n., Ativan p.r.n., aspirin 81 mg daily, carvedilol 6.25 mg every 12 hours, valsartan 80 mg daily, and lidocaine patch local applications. STUDIES: Reviewed. White blood cell 6.7, hemoglobin 13.9, and platelets 170. INR 1.08. Sodium 139, potassium 4, chloride 107, bicarbonate 25, BUN 13, creatinine 0.87, glucose 82. Serial cardiac biomarkers negative. Triglycerides 97, total cholesterol 174, LDL 90, HDL 65, TSH 0.9. Post chest tube placement, chest x-ray, interval placement of left-sided chest tube with decreased left-sided pneumothorax measuring up to 0.8 cm medially, improved aeration in left lung. The distal aspect of the catheter demonstrates an acute angulation, suggest clinical correlation. Opacities in the left lower lung consistent with contusion or atelectasis as seen on CT chest. ASSESSMENT: 1. Pulmonary contusion and associated hydropneumothorax and pneumomediastinum in the setting of mechanical fall with left sixth rib fracture. 2. Hypertension. RECOMMENDATIONS: 1. Status post chest tube. Monitor drainage and serial chest x-rays. 2. Keep on high-flow O2. 3. Pain control. 4. Benzo as needed for anxiety. 5. Hold aspirin. 6. Okay to continue rest of cardiovascular medications. 7. Please feel free to call with any questions at any time, . MD PALLAVI Ramirez/JEEVAN /[id number] MTDNayeli
--- NOTE | 2018-11-12 20:15 | NUR ---
RIGHT AC IV SITE SWELLING. IV REMOVED WITH TIP INTACT. PRESSURE DRESSING APPLIED. NEW IV STARTED TO LEFT FA 20G.
[2018-11-12] MEDS: LIDOCAINE 5% PATCH TP SCH (20:20)
[2018-11-12] MEDS: ATORVASTATIN 20 MG TAB PO SCH (20:20)
[2018-11-13] VITALS (9 sets, daily range): BP systolic 115–172; BP diastolic 67–93
[2018-11-13] MEDS: SODIUM CHLORIDE 0.9% 1000ML 1,000 ML IV SCH ×2 (04:37→21:06)
[2018-11-13 06:16] LABS: BASOPHILS % 0.8 % (0.0-1.0); EOSINOPHILS # (AUTO) 0.2 (0.0-0.4); EOSINOPHILS % 3.4 % (0.0-6.0); HEMATOCRIT 37.2 % (38.2-49.6); HEMOGLOBIN 12.7 g/dL (14.0-18.0); LYMPHOCYTES # (AUTO) 1.5 (1.0-3.2); LYMPHOCYTES % 29.1 % (18.0-39.1); MEAN CORPUSCULAR HEMOGLOBIN 32.3 pg (28-32); MEAN CORPUSCULAR HGB CONC 34.1 g/dL (31-35); MEAN CORPUSCULAR VOLUME 94.7 fL (81-99); MONOCYTES # (AUTO) 0.5 (0.2-0.8); MONOCYTES % 10.2 % (4.4-11.3); NEUTROPHILS # (AUTO) 2.8 (2.1-6.9); NEUTROPHILS % 56.1 % (38.7-80.0); PLATELET COUNT 159 x10e3/uL (140-360); RED BLOOD COUNT 3.93 x10e6/uL (4.3-5.7); RED CELL DISTRIBUTION WIDTH 12.4 % (11.7-14.4)
[2018-11-13] MEDS: LORAZEPAM INJ 2 MG/ML VIAL IV PRN ×2 (06:33→21:45)
[2018-11-13 06:40] LABS: ANION GAP 10.6 mmol/L (8-16); BLOOD UREA NITROGEN 10 mg/dL (7-26); BUN/CREATININE RATIO 12 (6-25); CALCIUM 7.6 mg/dL (8.4-10.2); CARBON DIOXIDE 25 mmol/L (22-29); CHLORIDE 106 mmol/L (98-107); CREATININE, SERUM 0.83 mg/dL (0.72-1.25); EST GLOMERULAR FILTRATION RATE > 60 ML/MIN (60-); GLUCOSE 79 mg/dL (74-118); POTASSIUM 3.6 mmol/L (3.5-5.1); SODIUM 138 mmol/L (136-145)
--- NOTE | 2018-11-13 07:23 | Diagnostic Imaging Report ---
Examination: Single AP view of the chest. COMPARISON: 11/12/2018 INDICATION: Post chest tube DISCUSSION: Left-sided chest tube remains coiled over the lateral aspect of the left lung apex. Trace residual apical pneumothorax. Patchy left lower lung opacities slightly improved and overlying subcutaneous emphysema unchanged. The right lung remains clear. Stable cardiomediastinal contour. No pulmonary edema. Acute, displaced left lateral sixth rib fracture unchanged IMPRESSION: Left-sided chest tube as above. Trace residual apical pneumothorax. Improving left lower lobe airspace opacities which may reflect contusion or atelectasis. Right lung remains clear. Signed by: Dr. Dalton England M.D. on 11/13/2018 7:20 AM
[2018-11-13] MEDS: VALSARTAN 80 MG TAB PO SCH (08:10)
[2018-11-13] MEDS: THYROID 60 MG TAB PO SCH (08:10)
[2018-11-13] MEDS: CARVEDILOL 3.125 MG TAB PO SCH ×2 (08:10→18:13)
[2018-11-13] MEDS: KETOROLAC TROMETHAMINE 30 MG/ML VIAL IV PRN (08:11)
[2018-11-13] MEDS: LIDOCAINE 5% PATCH TP SCH (10:40)
--- NOTE | 2018-11-13 13:04 | Progress Note ---
DATE: 11/13/2018 Cardiology Progress Note SUBJECTIVE: Complains of discomfort to chest and splinting with easy deep inspiration to the left lateral aspect. Chest tube replaced with increased drainage today. OBJECTIVE: VITAL SIGNS: Temperature 97 degrees, heart rate 72, respiratory rate 18, blood pressure 139/72, O2 saturation 98%. GENERAL: In no acute distress, alert. NECK: No JVD. CHEST: Decreased breath sounds and scattered rales to the left base. Chest tube in place. CARDIOVASCULAR: Regular rate and rhythm. Normal S1, S2. No S3 or S4. ABDOMEN: Soft, nontender, nondistended. EXTREMITIES: No edema. CARDIOVASCULAR MEDICATIONS: Reviewed. Carvedilol 6.25 mg daily was switched to every 12 hours. Valsartan 80 mg daily, atorvastatin 20 mg at bedtime. LABORATORY DATA: Labs reviewed. Potassium 3.6, creatinine 0.8, hemoglobin 12.7, white blood cells 5, platelets 159. INR 1.08. ASSESSMENT: 1. Pneumomediastinum. 2. Hydropneumothorax status post chest tube placement. 3. Status post traumatic left rib fracture with resultant splinting and pain and pulmonary contusion. 4. Preserved left ventricular systolic function. 5. Hypertension. RECOMMENDATIONS: 1. Switch carvedilol to twice daily dosing. 2. Lidocaine patch to area of rib fracture and discomfort, this is a closed rib fracture. 3. Monitor chest tube output. 4. Pain control and analgesics/anxiolytics as necessary. MD PALLAVI Ramirez/JEEVAN /[id number]
[2018-11-13] MEDS ORDERED: ONDANSETRON HCL 4 MG ORAL DISINTEGRATING TAB PO PRN (14:15)
--- NOTE | 2018-11-13 18:46 | NUR ---
Total of 160cc collected in chest tube collection chamber today.
[2018-11-13] MEDS: ATORVASTATIN 20 MG TAB PO SCH (20:53)
--- NOTE | 2018-11-13 21:45 | NUR ---
BP RECHECKED 163/90 MM[facility].
[2018-11-14] VITALS (8 sets, daily range): BP systolic 118–180; BP diastolic 68–97
[2018-11-14] MEDS: HYDROMORPHONE 2MG/ML 2 MG/ML ML IV PRN ×2 (00:27→14:38)
--- NOTE | 2018-11-14 01:21 | NUR ---
BP IMPROVED AFTER PRN PAIN MEDICATION WAS GIVEN 142/83 MMHG.
--- NOTE | 2018-11-14 06:13 | Diagnostic Imaging Report ---
EXAMINATION: CHEST SINGLE (PORTABLE) INDICATION: Postoperative. COMPARISON: Chest radiograph/. FINDINGS: TUBES and LINES: No interval change in position left thoracostomy tube is unchanged. LUNGS: Left basilar subsegmental atelectasis. PLEURA: Questionable residual trace left apical pneumothorax. HEART AND MEDIASTINUM: The cardiomediastinal silhouette is unremarkable. BONES AND SOFT TISSUES: Persistent extensive subcutaneous emphysema along the left lateral chest wall. Unchanged appearance of acute displaced left lateral sixth rib fracture. UPPER ABDOMEN: No free air under the diaphragm. IMPRESSION: Questionable residual trace left apical pneumothorax. Signed by: Dr. Jeff Gilman M.D. on 11/14/2018 6:09 AM
[2018-11-14 06:48] LABS: BASOPHILS % 0.8 % (0.0-1.0); EOSINOPHILS # (AUTO) 0.2 (0.0-0.4); EOSINOPHILS % 4.4 % (0.0-6.0); HEMATOCRIT 40.6 % (38.2-49.6); HEMOGLOBIN 13.6 g/dL (14.0-18.0); LYMPHOCYTES # (AUTO) 1.6 (1.0-3.2); LYMPHOCYTES % 30.4 % (18.0-39.1); MEAN CORPUSCULAR HEMOGLOBIN 31.6 pg (28-32); MEAN CORPUSCULAR HGB CONC 33.5 g/dL (31-35); MEAN CORPUSCULAR VOLUME 94.2 fL (81-99); MONOCYTES # (AUTO) 0.4 (0.2-0.8); MONOCYTES % 6.6 % (4.4-11.3); NEUTROPHILS % 57.6 % (38.7-80.0); PLATELET COUNT 187 x10e3/uL (140-360); RED BLOOD COUNT 4.31 x10e6/uL (4.3-5.7); RED CELL DISTRIBUTION WIDTH 12.7 % (11.7-14.4)
[2018-11-14 07:15] LABS: ANION GAP 9.6 mmol/L (8-16); BLOOD UREA NITROGEN 6 mg/dL (7-26); BUN/CREATININE RATIO 7 (6-25); CALCIUM 8.3 mg/dL (8.4-10.2); CARBON DIOXIDE 27 mmol/L (22-29); CHLORIDE 106 mmol/L (98-107); CREATININE, SERUM 0.84 mg/dL (0.72-1.25); EST GLOMERULAR FILTRATION RATE > 60 ML/MIN (60-); GLUCOSE 77 mg/dL (74-118); POTASSIUM 3.6 mmol/L (3.5-5.1); SODIUM 139 mmol/L (136-145)
[2018-11-14] MEDS: THYROID 60 MG TAB PO SCH (08:52)
[2018-11-14] MEDS: SODIUM CHLORIDE 0.9% 1000ML 1,000 ML IV SCH (08:52)
[2018-11-14] MEDS: CARVEDILOL 3.125 MG TAB PO SCH ×2 (08:52→17:31)
--- NOTE | 2018-11-14 15:05 | NUR ---
Attempted to see pt for initial assessment. Pt out of room, ambulating around hospital.
--- NOTE | 2018-11-14 19:02 | Progress Note ---
DATE: 11/14/2018 Cardiology Progress Note SUBJECTIVE: No chest pain except pian at chest tube site managed with lidocaine patch and p.r.n. opiates. Shortness of breath improved. Discussed the CT findings including coronary calcifications. OBJECTIVE: VITAL SIGNS: Reviewed. Temperature 97.4, heart rate 81, respiratory rate 18, blood pressure 118/68, O2 saturation 98% on room air. GENERAL: No acute distress, alert, active, oriented. NECK: No JVD. CHEST: With decreased breath sounds in left base and chest tube in place. CARDIOVASCULAR: Regular rate and rhythm. Normal S1, S2. No S3, no S4. ABDOMEN: Soft, nontender. EXTREMITIES: No edema, warm distal extremities. CARDIOVASCULAR MEDICATIONS: Reviewed. Thyroid 90 mg daily p.o., atorvastatin 40 mg at bedtime, lidocaine patch p.r.n., carvedilol 6.25 mg b.i.d. STUDIES: Sodium 142, potassium 4.1, chloride 106, bicarbonate 24, BUN 17, creatinine 1.13, calcium 8.7, glucose 167, magnesium 2.5, total bilirubin 1.3, AST 28, ALT 18, alkaline phosphatase 56. CK 250, CK-MB 1.1, troponin I less than 0.001, total protein 7.4, albumin 3.8. Chest x-ray, questionable residual trace left apical pneumothorax. TELEMETRY: Discontinued. ASSESSMENT: 1. Pneumomediastinum. 2. Hydropneumothorax status post chest tube placement. 3. Status post traumatic left rib fracture with resultant splinting pain and pulmonary contusion, now improved. 4. Preserved left ventricular systolic function. 5. Hypertension. 6. Coronary calcifications on CT. 7. Dyslipidemia. RECOMMENDATIONS: 1. While in-house after discussions of coronary CT have decided to optimize and intensify risk factor management and I will titrate statin to highest tolerated potency. He was on 40 mg atorvastatin at bedtime starting on July after finding of some carotid plaque on ultrasound in office. I have ordered additional lipid panel to be checked in a.m. and plan to further increase atorvastatin to 80 mg at bedtime. If lab work is agreeable to this to optimize endpoint risks of MACE. 2. Continue pain control management. Monitor chest tube output and upon discharge. Outpatient followup advised in 4 to 6 weeks. MD PALLAVI Ramirez/SANDRAL /[id number]
[2018-11-14] MEDS: ATORVASTATIN 20 MG TAB PO SCH (20:04)
[2018-11-14] MEDS: LIDOCAINE 5% PATCH TP SCH (20:04)
[2018-11-14 22:21] LABS: CLARITY,URINE CLEAR (CLEAR); COLOR,URINE STRAW (YELLOW)
[2018-11-14 22:22] LABS: BILIRUBIN,URINE NEGATIVE (NEGATIVE); KETONES,URINE NEGATIVE (NEGATIVE); LEUKOCYTE ESTERASE ,URINE NEGATIVE (NEGATIVE); NITRITE,URINE NEGATIVE (NEGATIVE); PROTEIN,URINE DIPSTICK NEGATIVE (NEGATIVE); URINE UROBILINOGEN 0.2 mg/dL (0.2 - 1)
[2018-11-14 22:34] LABS: RBC,URINE 0-5 /HPF (0-5); WBC,URINE (MAN) 0-5 /HPF (0-5)
[2018-11-14] MEDS: LORAZEPAM INJ 2 MG/ML VIAL IV PRN (23:58)
[2018-11-15] VITALS (7 sets, daily range): BP systolic 107–171; BP diastolic 60–92
[2018-11-15 06:06] LABS: BASOPHILS % 0.6 % (0.0-1.0); EOSINOPHILS # (AUTO) 0.2 (0.0-0.4); EOSINOPHILS % 4.3 % (0.0-6.0); HEMATOCRIT 37.8 % (38.2-49.6); HEMOGLOBIN 13.1 g/dL (14.0-18.0); LYMPHOCYTES # (AUTO) 1.4 (1.0-3.2); LYMPHOCYTES % 25.6 % (18.0-39.1); MEAN CORPUSCULAR HEMOGLOBIN 32.7 pg (28-32); MEAN CORPUSCULAR HGB CONC 34.7 g/dL (31-35); MEAN CORPUSCULAR VOLUME 94.3 fL (81-99); MONOCYTES # (AUTO) 0.4 (0.2-0.8); MONOCYTES % 7.3 % (4.4-11.3); NEUTROPHILS # (AUTO) 3.3 (2.1-6.9); NEUTROPHILS % 61.8 % (38.7-80.0); PLATELET COUNT 179 x10e3/uL (140-360); RED BLOOD COUNT 4.01 x10e6/uL (4.3-5.7); RED CELL DISTRIBUTION WIDTH 12.5 % (11.7-14.4)
[2018-11-15 06:25] LABS: ANION GAP 9.8 mmol/L (8-16); BLOOD UREA NITROGEN 5 mg/dL (7-26); BUN/CREATININE RATIO 5 (6-25); CALCIUM 8.6 mg/dL (8.4-10.2); CARBON DIOXIDE 28 mmol/L (22-29); CHLORIDE 104 mmol/L (98-107); CREATININE, SERUM 0.91 mg/dL (0.72-1.25); EST GLOMERULAR FILTRATION RATE > 60 ML/MIN (60-); GLUCOSE 90 mg/dL (74-118); POTASSIUM 3.8 mmol/L (3.5-5.1); SODIUM 138 mmol/L (136-145)
--- NOTE | 2018-11-15 06:26 | Diagnostic Imaging Report ---
EXAMINATION: CHEST SINGLE (PORTABLE) INDICATION: Chest tube. Pneumothorax follow-up. COMPARISON: Chest radiograph 11/14/2018. FINDINGS: TUBES and LINES: No interval change in position left thoracostomy tube. LUNGS: Left basilar subsegmental atelectasis. PLEURA: No definite pneumothorax. No pleural effusion. HEART AND MEDIASTINUM: The cardiomediastinal silhouette is unremarkable. BONES AND SOFT TISSUES: Persistent extensive subcutaneous emphysema along the left lateral chest wall. Unchanged appearance of acute displaced left lateral sixth rib fracture. UPPER ABDOMEN: No free air under the diaphragm. IMPRESSION: Stable left thoracostomy tube. No definite pneumothorax. Signed by: Dr. Jeff Gilman M.D. on 11/15/2018 6:22 AM
[2018-11-15 06:48] LABS: CHOL/HDL RATIO 1.6 (3.9-4.7)
[2018-11-15 07:09] LABS: THYROID STIMULATING HORMONE 2.177 uIU/mL (0.350-4.940)
--- NOTE | 2018-11-15 07:24 | NUR ---
Rcvd patient in report this am. Patient is awake in bed. Chest tube in place. No c/o pain at this time.
[2018-11-15] MEDS: KETOROLAC TROMETHAMINE 30 MG/ML VIAL IV PRN ×2 (08:01→18:43)
[2018-11-15] MEDS: CARVEDILOL 3.125 MG TAB PO SCH ×2 (08:31→16:24)
[2018-11-15] MEDS: THYROID 60 MG TAB PO SCH (08:31)
--- NOTE | 2018-11-15 11:55 | NUR ---
Patient is AAOx3. Patient is post op left chest wall chest tube. Patient lung gee diminished to auscultation on left side but clear on right side. No c/o pain at this time. Patient ambulates with no shortness of breath noted. Bowel sounds present x4. No edema noted. No s/s of distress noted
--- NOTE | 2018-11-15 12:20 | Progress Note ---
DATE: 11/15/2018 Cardiology Progress Note SUBJECTIVE: No complaints today, had over 400 mL of drainage from chest tube yesterday. Chest discomfort is manageable. OBJECTIVE: VITAL SIGNS: Reviewed. Temperature 97.6, heart rate 60, blood pressure 171/91, respiratory rate 20, and O2 saturation 98%. GENERAL: In no acute distress, alert. NECK: No JVD. CHEST: Clear to auscultation bilaterally. Chest tube in place to left side, anterior chest. CARDIOVASCULAR: Regular rate and rhythm. Normal S1 and S2. No S3, no S4. No murmurs, no rubs. ABDOMEN: Soft, nontender. EXTREMITIES: No edema. Warm distal extremities. CARDIOVASCULAR MEDICATIONS: Reviewed. Carvedilol 6.25 mg every 12 hours, atorvastatin 40 mg at bedtime, and thyroid 90 mg daily. STUDIES: Reviewed. Total cholesterol 104, LDL 28, HDL 64, and triglycerides 61. Sodium 138, potassium 3.8, chloride 104, bicarbonate 28, BUN 5, creatinine 0.91, glucose 90. White blood cells 5.3, hemoglobin 13.1, and platelets 179. INR 1.08, AST 25, ALT 17, and alkaline phosphatase 50. ASSESSMENT: 1. Coronary calcifications on CT. 2. Mild carotid plaque on ultrasound. 3. Hypertension. 4. Dyslipidemia. 5. Hydropneumothorax. 6. Blunt chest trauma resulting in traumatic left sixth rib fracture and pulmonary contusion. RECOMMENDATIONS: 1. Continue current cardiovascular medications. 2. Once chest tube is discontinued and pain control adequate, we will reassess blood pressure and consider further up titration of medications as needed. 3. Continue atorvastatin at current dose of 40 mg at bedtime. Lipids are adequately controlled. This is for prevention of adverse cardiovascular endpoints given finding of coronary calcifications on CT and mild plaque on carotid ultrasound done in office. MD PALLAVI Ramirez/JEEVAN /[id number] MTDD
--- NOTE | 2018-11-15 20:23 | NUR ---
DR. Meet HAMMONDS DOING ROUNDS AT THIS TIME. NEW ORDER RCV FOR CHEST XRAY 2 VIEWS IN THE MORNING.
[2018-11-15] MEDS: ATORVASTATIN 20 MG TAB PO SCH (21:00)
[2018-11-15] MEDS: LIDOCAINE 5% PATCH TP SCH (21:30)
[2018-11-16] VITALS: BP 126/79
[2018-11-16 04:00] VITALS: BP 161/98
--- NOTE | 2018-11-16 06:23 | Diagnostic Imaging Report ---
EXAMINATION: CHEST 2 VIEWS INDICATION: Chest tube. COMPARISON: . FINDINGS: TUBES and LINES: Left thoracostomy tube is unchanged in position. LUNGS: Lungs are well inflated. Patchy density in the lateral lower left hemithorax may reflect contusion. There is no evidence of pneumonia or pulmonary edema. PLEURA: No pleural effusion or pneumothorax. HEART AND MEDIASTINUM: The cardiomediastinal silhouette is unremarkable. BONES AND SOFT TISSUES: No change. UPPER ABDOMEN: No free air under the diaphragm. IMPRESSION: 1. No pneumothorax. 2. Patchy density in the lateral lower left hemithorax likely contusion. Signed by: Dr. Jeff Gilman M.D. on 11/16/2018 6:19 AM
--- NOTE | 2018-11-16 07:18 | NUR ---
Rcvd patient in report this am. Patient is awake at bedside. No s/s of distress noted.
[2018-11-16] MEDS: THYROID 60 MG TAB PO SCH (08:07)
[2018-11-16] MEDS: CARVEDILOL 3.125 MG TAB PO SCH (08:07)
[2018-11-16 08:39] VITALS: BP 186/96
[2018-11-16 09:30] VITALS: BP 186/96
[2018-11-16] MEDS: KETOROLAC TROMETHAMINE 30 MG/ML VIAL IV PRN (10:37)
--- NOTE | 2018-11-16 11:05 | NUR ---
Patient is AAOx3. Patient has a left chest wall chest tube. Dressing in place. No shortness of breath noted at this time. Lung gee clear to auscultation on right side and clear to lower lobe on left side. Patient ambulates on his own. PRN pain meds given this am.
[2018-11-16] MEDS: HYDROMORPHONE 2MG/ML 2 MG/ML ML IV PRN (11:44)
--- NOTE | 2018-11-16 11:45 | NUR ---
Left chest tube removed at this time per Dr. Reis. One stitch removed and patient tolerated well. Dressing applied. No c/o pain. No shortness of breath noted
--- NOTE | 2018-11-16 12:00 | NUR ---
Removed IV from left forearm. Pressure dressing applied.
[2018-11-16] MEDS ORDERED: TYLENOL WITH C1 EACH PO (12:03)
[2018-11-16 12:09] VITALS: BP 154/87
--- NOTE | 2018-11-16 12:30 | NUR ---
Patient discharged from facility to home. Patient assisted out via staff. Patient had no c/o pain or no shortness of breath noted. Reviewed all discharge paperwork, follow up appts, and RX's given. No s/s of distress noted
--- NOTE | 2018-11-18 03:52 | Discharge Summary ---
DISCHARGE DIAGNOSES: 1. Left rib fracture, status post fall. 2. Pneumothorax. 3. Pneumomediastinum. 4. Hemothorax. 5. Hypertension. 6. Hyperlipidemia. HISTORY OF PRESENT ILLNESS AND HOSPITAL COURSE: Please see hospital chart for full details. The patient is a gentleman, who fell and sustained left rib fracture emphysema on the left side with displaced left 6th rib, as well as evidence of a hemopneumothorax. He was brought in, was had serial chest x-rays as well as pneumothorax progressed, so he did have to have a chest tube placed, which did show slow but continuous improvements. At the time of removal of the chest tube, it has been turned off for over 12 hours. There was no resumption of the hemopneumothorax, the chest tube was removed, it was observed for hours afterwards and without any issues or complaints and then he was cleared by the surgery. Pulmonary doctors to be cleared to go home, so the patient was transferred home to follow up with his primary care physician in 1 to 2 weeks as well as with Pulmonary. Please see hospital chart for full details. MD ABBY Lopes/JEEVAN /[id number]
== END 2018-11-16 12:30 | disposition home or self-care (01) | DRG 205 ==
LOC: ER 14:21 → ERHOLD 16:07 → MED/SURG 16:31 → OBSVTOIN 11-12 08:38
PROVIDERS: ADMIT Internal Medicine; ATTEND Internal Medicine
PROC: 0W9B30Z Drainage of Left Pleural Cavity with Drainage Device, Percutaneous Approach (ICD-10-PCS; principal; 2018-11-12)
DX: S22.32XA Fracture of one rib, left side, initial encounter for closed fracture (principal); S27.2XXA Traumatic hemopneumothorax, initial encounter; T79.7XXA Traumatic subcutaneous emphysema, initial encounter; S27.321A Contusion of lung, unilateral, initial encounter; R29.6 Repeated falls; I10 Essential (primary) hypertension; W01.0XXA Fall on same level from slipping, tripping and stumbling without subsequent striking against object, initial encounter; Z91.81 History of falling; Y93.02 Activity, running; Y92.019 Unspecified place in single-family (private) house as the place of occurrence of the external cause; Z82.49 Family history of ischemic heart disease and other diseases of the circulatory system; E78.5 Hyperlipidemia, unspecified; E03.9 Hypothyroidism, unspecified; F41.9 Anxiety disorder, unspecified
CPT/HCPCS: 36415; 70450; 71045; 71046; 71250; 71260; 72125; 74177; 80048; 80053; 80061; 81001; 82550; 82553; 83036; 83735; 84443; 84484; 85025; 85610; 85730; 93005; 93306; 96360; 99284; G0378; J1885; J2001; J2060; J2405; J7030

== ENCOUNTER 2018-11-17 16:09 | Emergency (ER) | payer BC ==
[~2018-11-17] VITALS: Ht 180.3 cm; Wt 83.9 kg
[~2018-11-17 16:09] MED LIST: CARVEDILOL6.25 MG PO; DIOVAN80 MG PO; LOW DOSE ASPIRI81 MG PO; NP THYROID90 MG PO; TYLENOL WITH C1 EACH PO
[2018-11-17] MEDS ORDERED: KETOROLAC TROMETHAMINE 30 MG/ML VIAL IV STA (16:21)
[2018-11-17] MEDS ORDERED: CEFTRIAXONE SOD 2 GM/NS 100 ML 100 ML IV ONE (16:30)
[2018-11-17] MEDS ORDERED: VANCOMYCIN 1GM/NS 250 ML 250 ML IV SCH (16:30)
[2018-11-17] MEDS ORDERED: CARVEDILOL 12.5 MG TAB PO ONE (17:15)
--- NOTE | 2018-11-17 17:19 | Diagnostic Imaging Report ---
EXAMINATION: CT scan of the chest with contrast. TECHNIQUE: Helical CT images of the chest were performed from the lung apices to the level of the adrenal glands after the intravenous administration of 100 cc of Isovue 300. Coronal and sagittal reformatted images were obtained.Dose modulation, iterative reconstruction, and/or weight based adjustment of the mA/kV was utilized to reduce the radiation dose to as low as reasonably achievable. COMPARISON: Multiple prior studies. CLINICAL HISTORY:Evaluate for empyema DISCUSSION: LINES/TUBES: Prior left chest tube. LUNGS AND AIRWAYS: Left lower lung atelectasis. Left lower lung scarring and pleural thickening. PLEURA: Small simple effusion 6 Hounsfield unit. HEART AND MEDIASTINUM: The thyroid gland is normal. The heart and pericardium are within normal limits. LYMPH NODES: There is no mediastinal, hilar or axillary lymphadenopathy. ABDOMEN: Limited contrast-enhanced views of the upper abdomen show no abnormality within the visualized liver, spleen, pancreas, or kidneys. The adrenal glands are normal. BONES AND SOFT TISSUES: Displaced left sixth and nondisplaced left seventh rib fractures. Subcutaneous emphysema. IMPRESSION: Left lower lung atelectasis with small simple effusion Left sixth and seventh rib fractures. Signed by: Dr. Jorje Gautam M.D. on 11/17/2018 5:15 PM
[2018-11-17] MEDS ORDERED: SODIUM CHLORIDE 0.9% 1000ML 1,000 ML IV ONE (17:30)
== END 2018-11-17 18:59 | disposition home or self-care (01) ==
LOC: FSED 16:09
DX: R06.00 Dyspnea, unspecified (principal); J18.9 Pneumonia, unspecified organism; J90 Pleural effusion, not elsewhere classified; S22.42XD Multiple fractures of ribs, left side, subsequent encounter for fracture with routine healing
CPT/HCPCS: 71260; 80053; 84484; 85025; 99284; J0696; J1885; J3370; J7030

== ENCOUNTER → 2018-11-19 | Outpatient (CLI) | payer BC | LOC: LAB 16:43 | PROVIDERS: ATTEND Internal Medicine Infectious Disease | DX: Z11.9 Encounter for screening for infectious and parasitic diseases, unspecified (principal) | CPT/HCPCS: 87071; 87205 ==

== ENCOUNTER → 2018-11-22 | Outpatient (CLI) | payer BC ==
--- NOTE | 2018-11-22 11:01 | Diagnostic Imaging Report ---
EXAMINATION: PA and lateral views of the chest. COMPARISON: CT chest with contrast 11/17/2018 CLINICAL HISTORY: Left rib fracture, chest tube site, DISCUSSION: The lungs are well-inflated. Small left pleural effusion with adjacent linear opacity in the left lower lobe compatible with subsegmental atelectasis. No pneumothorax. Right lung is clear. Cardiomediastinal contour and pulmonary vasculature are within normal limits. Minimally displaced left lateral sixth and nondisplaced left lateral seventh rib fractures are seen to better advantage on comparison CT. IMPRESSION: Small residual left pleural effusion and subsegmental atelectasis of the left lower lobe. No pneumothorax. Left-sided rib fractures seen to better advantage on comparison CT chest 11/17/2018. Signed by: Dr. Dalton England M.D. on 11/22/2018 10:58 AM
== END ==
LOC: RAD 10:10
PROVIDERS: ATTEND Surgery
DX: Z09 Encounter for follow-up examination after completed treatment for conditions other than malignant neoplasm (principal); J93.9 Pneumothorax, unspecified
CPT/HCPCS: 71046

== ENCOUNTER 2018-11-27 14:25 | Observation (INO) | payer BC ==
[~2018-11-27] VITALS: Ht 180.3 cm; Wt 83.9 kg
[2018-11-27] MEDS ORDERED: FAMOTIDINE 20 MG/2 ML VIAL IV ONE (14:34)
[2018-11-27] MEDS ORDERED: SODIUM CHLORIDE 0.9% 1000ML 1,000 ML IV STA (14:34)
[2018-11-27] MEDS ORDERED: ONDANSETRON HCL INJ 2MG/ML 2ML 2 MG/ML VIAL IV ONE (14:34)
[2018-11-27 14:46] LABS: BASOPHILS # (AUTO) 0.1 (0.0-0.1); BASOPHILS % 1.7 % (0.0-1.0); EOSINOPHILS # (AUTO) 0.9 (0.0-0.4); EOSINOPHILS % 10.5 % (0.0-6.0); HEMATOCRIT 42.3 % (38.2-49.6); HEMOGLOBIN 14.6 g/dL (14.0-18.0); LYMPHOCYTES # (AUTO) 1.3 (1.0-3.2); LYMPHOCYTES % 15.2 % (18.0-39.1); MEAN CORPUSCULAR HGB CONC 34.5 g/dL (31-35); MEAN CORPUSCULAR VOLUME 92.8 fL (81-99); MONOCYTES # (AUTO) 0.6 (0.2-0.8); MONOCYTES % 7.1 % (4.4-11.3); NEUTROPHILS # (AUTO) 5.4 (2.1-6.9); NEUTROPHILS % 65.1 % (38.7-80.0); PLATELET COUNT 278 x10e3/uL (140-360); RED BLOOD COUNT 4.56 x10e6/uL (4.3-5.7); RED CELL DISTRIBUTION WIDTH 12.8 % (11.7-14.4)
[2018-11-27 15:02] LABS: ALANINE AMINOTRANSFERASE 24 IU/L (0-55); ALBUMIN 3.8 g/dL (3.5-5.0); ALKALINE PHOSPHATASE 119 IU/L (40-150); ANION GAP 11.5 mmol/L (8-16); BLOOD UREA NITROGEN 17 mg/dL (7-26); BUN/CREATININE RATIO 14 (6-25); CALCIUM 9.8 mg/dL (8.4-10.2); CARBON DIOXIDE 30 mmol/L (22-29); CHLORIDE 98 mmol/L (98-107); CREATINE KINASE 148 IU/L (30-200); CREATININE, SERUM 1.22 mg/dL (0.72-1.25); EST GLOMERULAR FILTRATION RATE > 60 ML/MIN (60-); GLUCOSE 107 mg/dL (74-118); POTASSIUM 4.5 mmol/L (3.5-5.1); SODIUM 135 mmol/L (136-145)
[2018-11-27] MEDS ORDERED: SODIUM CHLORIDE 0.9% 1000ML 1,000 ML ONE (15:06)
[2018-11-27] MEDS ORDERED: PROMETHAZINE 12.5MG/ NACL 0.9% 12.5 MG/50 ML BAG IV ONE (16:00)
[2018-11-27] MEDS ORDERED: SODIUM CHLORIDE 0.9% 1000ML 1,000 ML IV SCH ×2 (16:30→17:45)
[2018-11-27] MEDS ORDERED: ONDANSETRON HCL INJ 2MG/ML 2ML 2 MG/ML VIAL IV PRN (17:45)
--- NOTE | 2018-11-27 18:07 | Diagnostic Imaging Report ---
EXAMINATION: CHEST 2 VIEWS INDICATION: ^H/O CHEST TUBE, +fever/chills ^[id number] ^1700 COMPARISON: Chest x-ray dated 11/22/2018 FINDINGS: PA and lateral views TUBES and LINES: None. LUNGS and pleura: Lungs are well inflated. Small left pleural effusion with adjacent hazy opacities. No visible pneumothorax. HEART AND MEDIASTINUM: The cardiomediastinal silhouette is unremarkable. BONES AND SOFT TISSUES: Left-sided rib fractures are better seen on prior CT. Soft tissues are unremarkable. UPPER ABDOMEN: No free air under the diaphragm. IMPRESSION: Small left pleural effusion with adjacent hazy opacities, representing atelectasis or pneumonia. Signed by: Dr. Sarthak Carr MD on 11/27/2018 6:04 PM
== END 2018-11-27 18:53 | disposition home or self-care (01) ==
LOC: ER 14:25 → ERHOLD 17:33
PROVIDERS: ADMIT Family Medicine; ATTEND Family Medicine
DX: E86.0 Dehydration (principal); Z82.49 Family history of ischemic heart disease and other diseases of the circulatory system
CPT/HCPCS: 36415; 71046; 80053; 82550; 82553; 84484; 85025; 93005; 99284; G0378; J7030

== ENCOUNTER 2018-12-02 20:17 | Emergency (ER) | payer BC ==
[~2018-12-02] VITALS: Ht 180.3 cm; Wt 83.9 kg
[2018-12-02] MEDS ORDERED: SODIUM CHLORIDE 0.9% 1000ML 1,000 ML IV STA (20:28)
[2018-12-02] MEDS ORDERED: ONDANSETRON HCL INJ 2MG/ML 2ML 2 MG/ML VIAL IV STA (20:28)
[2018-12-02 20:40] LABS: BASOPHILS # (AUTO) 0.1 (0.0-0.1); BASOPHILS % 1.3 % (0.0-1.0); EOSINOPHILS # (AUTO) 0.7 (0.0-0.4); EOSINOPHILS % 10.8 % (0.0-6.0); HEMATOCRIT 43.5 % (38.2-49.6); HEMOGLOBIN 15.3 g/dL (14.0-18.0); LYMPHOCYTES # (AUTO) 2.5 (1.0-3.2); LYMPHOCYTES % 36.3 % (18.0-39.1); MEAN CORPUSCULAR HEMOGLOBIN 32.3 pg (28-32); MEAN CORPUSCULAR HGB CONC 35.2 g/dL (31-35); MONOCYTES # (AUTO) 0.4 (0.2-0.8); MONOCYTES % 6.3 % (4.4-11.3); NEUTROPHILS # (AUTO) 3.1 (2.1-6.9); PLATELET COUNT 230 x10e3/uL (140-360); RED BLOOD COUNT 4.73 x10e6/uL (4.3-5.7); RED CELL DISTRIBUTION WIDTH 13.2 % (11.7-14.4)
[2018-12-02 20:52] LABS: INR 0.89; PROTHROMBIN TIME 12.5 seconds (11.9-14.5)
[2018-12-02 20:53] LABS: PARTIAL THROMBOPLASTIN TIME 25.6 seconds (23.8-35.5)
[2018-12-02] MEDS: HYDROMORPHONE 2MG/ML 2 MG/ML ML IV STA ×2 (20:56→21:51)
[2018-12-02 21:08] LABS: ALANINE AMINOTRANSFERASE 18 IU/L (0-55); ALKALINE PHOSPHATASE 102 IU/L (40-150); BLOOD UREA NITROGEN 13 mg/dL (7-26); BUN/CREATININE RATIO 13 (6-25); CALCIUM 9.2 mg/dL (8.4-10.2); CARBON DIOXIDE 25 mmol/L (22-29); CHLORIDE 108 mmol/L (98-107); CREATINE KINASE 98 IU/L (30-200); CREATININE, SERUM 1.04 mg/dL (0.72-1.25); EST GLOMERULAR FILTRATION RATE > 60 ML/MIN (60-); GLUCOSE 97 mg/dL (74-118); MAGNESIUM 2.5 MG/DL (1.3-2.1); SODIUM 143 mmol/L (136-145)
[2018-12-02] MEDS ORDERED: VANCOMYCIN 1GM/NS 250 ML 250 ML IV SCH (21:15)
--- NOTE | 2018-12-02 21:31 | Diagnostic Imaging Report ---
EXAMINATION: CHEST SINGLE (NOT PORTABLE) INDICATION: ^RECENT PTX WITH RIB FX, SOB CP ^[id number] ^2024 COMPARISON: 11/27/2018 FINDINGS: AP view TUBES and LINES: None. LUNGS: Lungs are well inflated. There is no evidence of pneumonia or pulmonary edema. PLEURA: Small left hydropneumothorax. HEART AND MEDIASTINUM: The cardiomediastinal silhouette is unremarkable. BONES AND SOFT TISSUES: No acute osseous lesion. Soft tissues are unremarkable. UPPER ABDOMEN: No free air under the diaphragm. IMPRESSION: Small left hydropneumothorax. Signed by: Dr. Sarthak Carr MD on 12/02/2018 9:28 PM
[2018-12-02] MEDS ORDERED: LIDOCAINE 1% W/EPINEPHRINE 20 ML VIAL ONE (21:44)
[2018-12-02] MEDS ORDERED: ONDANSETRON HCL INJ 2MG/ML 2ML 2 MG/ML VIAL ONE (21:49)
--- NOTE | 2018-12-02 21:50 | NUR ---
DR. PINTO AT BEDSIDE FOR CHEST TUBE INSERTION. PT STABLE. NO DISTRESS NOTED.
[2018-12-02] MEDS ORDERED: MEROPENEM 1GRAM 1 GM in SODIUM CHLORIDE 0.9% 100 ML 100 ML IV SCH (22:00)
[2018-12-02] MEDS ORDERED: HYDROMORPHONE 2MG/ML 2 MG/ML ML IV PRN (22:00)
[2018-12-02] MEDS ORDERED: SODIUM CHLORIDE 0.9% 1000ML 1,000 ML IV ONE (22:00)
[2018-12-02] MEDS ORDERED: ONDANSETRON HCL INJ 2MG/ML 2ML 2 MG/ML VIAL IV PRN (22:00)
[2018-12-02] MEDS ORDERED: MEROPENEM 1 GM VIAL ONE (22:35)
[2018-12-02] MEDS ORDERED: SODIUM CHLORIDE 0.9% 100 ML ONE (22:35)
[2018-12-02] MEDS ORDERED: HYDROMORPHONE 2MG/ML 2 MG/ML ML IV ONE (22:45)
--- NOTE | 2018-12-02 22:57 | Diagnostic Imaging Report ---
EXAMINATION: CHEST SINGLE (PORTABLE) INDICATION: ^CHEST TUBE INSERTION ^Y COMPARISON: Same day at 2036 hours FINDINGS: AP view TUBES and LINES: Interval left chest tube insertion. LUNGS: Increased hazy opacification of the left lower lung field, related to chest tube placement. PLEURA: Small left pleural effusion. Decreased left pneumothorax with air gap of 0.8 cm, previously 2.9 cm. HEART AND MEDIASTINUM: The cardiomediastinal silhouette is unremarkable. BONES AND SOFT TISSUES: No acute osseous lesion. Soft tissues are unremarkable. UPPER ABDOMEN: No free air under the diaphragm. IMPRESSION: Interval decrease in left pneumothorax, status post left chest tube placement. Persistent small left pleural effusion with adjacent atelectasis. Signed by: Dr. Sarthak Carr MD on 12/02/2018 10:54 PM
--- NOTE | 2018-12-03 00:15 | Diagnostic Imaging Report ---
EXAM: CT Chest WITHOUT contrast INDICATION: ^PTX, EFFUSION COMPARISON: Same day chest x-ray TECHNIQUE: Chest was scanned utilizing a multidetector helical scanner from the lung apex through the level of the adrenal glands without administration of IV contrast. Absence of intravenous contrast decreases sensitivity for detection of lymphadenopathy and vascular pathology. Coronal and sagittal reformations were obtained. Routine protocol was performed. IV CONTRAST: None COMPLICATIONS: None RADIATION DOSE: Total DLP: 579.46 mGy*cm Estimated effective dose: (DLP x 0.014 x size factor) mSv CTDIvol has been reviewed. It is below the limits set by the Radiation Protocol Committee (RPC). FINDINGS: LINES/ TUBES: Left chest tube in place with tip terminating in the medial left lower lobe. LUNGS AND AIRWAYS: Left lower lobe and lingular consolidations. Airways are normal. PLEURA: Small left pneumothorax, predominantly adjacent to the lingula and the site of chest tube insertion (series 3, image 94). Trace left pleural effusion. HEART AND MEDIASTINUM: The thyroid gland is normal. No mediastinal, hilar or axillary lymphadenopathy. The heart is normal in size.. There is no pericardial effusion. Mild atherosclerotic calcification of coronary arteries. UPPER ABDOMEN: Unremarkable. BONES: Fractures of the left third through seventh ribs. The left sixth rib fracture is displaced. Mild subcutaneous emphysema at the left chest tube insertion site. SOFT TISSUES: Unremarkable. IMPRESSION: Small left pneumothorax. Left chest tube in place. Trace left pleural effusion. Multiple left sided rib fractures as above. Left lower lobe and lingular consolidations, probably atelectasis. Underlying pneumonia cannot be excluded in the appropriate clinical context. Signed by: Dr. Sarthak Carr MD on 12/03/2018 12:12 AM
[2018-12-03 00:17] LABS: BODY FLUID APPEARANCE CLOUDY; BODY FLUID COLOR YELLOW; BODY FLUID TYPE PLEURAL
[2018-12-03 00:18] LABS: NEUTROPHILS,BODY FLUID 26 %; RBC,BODY FLUID 4059 cells/uL; WBC,BODY FLUID 5990 cells/uL
[2018-12-03 00:19] LABS: BASOPHILS,BODY FLUID 1 %
[2018-12-03 00:20] LABS: LYMPHOCYTES,BODY FLUID 19 %; MONO/MACROPHG,BODY FLUID 5 %
[2018-12-03 00:21] LABS: EOSINOPHILS,BODY FLUID 49 %
[2018-12-03] MEDS ORDERED: KETOROLAC TROMETHAMINE 30 MG/ML VIAL IV STA (00:35)
--- NOTE | 2018-12-03 00:39 | NUR ---
REPORT GIVEN TO GOSIA POTTS AT [facility] ER.
[2018-12-03 01:16] VITALS: BP 134/100
[2018-12-03] MEDS ORDERED: DIPHENHYDRAMINE HCL INJ 50 MG/ML VIAL ONE (01:35)
--- NOTE | 2018-12-03 04:20 | Consultation ---
DATE OF CONSULTATION: 12/02/2018 CHIEF COMPLAINT: Dyspnea and hemoptysis. HISTORY OF PRESENT ILLNESS: This 58-year-old male with history of left rib fracture two weeks ago after a fall on his left elbow playing football. The patient at that time sustained a pneumothorax, which required a left chest tube placement. The patient was doing well in the last few days when he experienced fevers and was taking Cipro with improvement. However, in the last 24 hours he noted increased dyspnea and noted blood on his pillow in the morning, mild chest pain. PAST MEDICAL HISTORY: Positive for hypertension, hypothyroidism, hyperlipidemia. ALLERGIES: NO DRUG ALLERGIES. SOCIAL HABITS: No smoking or alcohol abuse. REVIEW OF SYSTEMS: As mentioned in the HPI, mild nausea. PHYSICAL EXAMINATION: VITAL SIGNS: Stable, afebrile. GENERAL: The patient is awake, responsive, in mild discomfort. HEENT: Sclerae anicteric. NECK: Supple. LUNGS: Decreased breath sounds on the left base. HEART: Regular rate and rhythm. ABDOMEN: Soft. EXTREMITIES: No cyanosis, edema. LABORATORY DATA: White cell count 6, hemoglobin of 15, platelet count 230. Creatinine of 1.0. Chest x-ray show 30% pneumothorax with left pleural effusion. ASSESSMENT: Left recurrent pneumohydrothorax. PLAN: Insertion of left side chest tube. Antibiotic coverage. Dalton Mock MD DNLupe/MODL /[id number]
--- NOTE | 2018-12-03 04:30 | Operative Report ---
DATE OF PROCEDURE: 12/02/2018 SURGEON: Dalton Mock MD PREOPERATIVE DIAGNOSIS: Left hydropneumothorax. POSTOPERATIVE DIAGNOSIS: Left hydropneumothorax. OPERATIVE PROCEDURE: Insertion of left-sided chest tube. [employer]: None. ANESTHESIA: Local. INDICATION: The patient is a 58-year-old male with dyspnea and hemoptysis with history of left rib fracture from falling. Chest x-ray showed a left side pneumothorax with pleural effusion. He consented for placement of left-sided chest tube under local anesthesia with attendant risks discussed. DESCRIPTION OF PROCEDURE: The patient was placed in the supine position in his stretcher in the emergency room setting. The left anterolateral chest was prepped with Betadine and draped in sterile fashion. We selected the 6th intercostal space along the midaxillary line for insertion site. The skin is prepped with Betadine and draped in sterile fashion. Anesthesia locally was achieved with 0.5% lidocaine with epinephrine injected into the skin and intercostal muscle. A small 2 cm incision was made overlying the 7th rib and the 6th intercostal space was entered with the trocar. A 20-Mexican chest tube was directed posteriorly. The chest tube is advanced without resistance to 14 cm marking at the skin level. The chest tube was placed on Pleur-evac wall suction and anchored to the skin with 0-silk stitches. The patient tolerated the procedure well. ESTIMATED BLOOD LOSS: 3 mL. Dalton Mock MD DNL/MODL /[id number]
== END 2018-12-03 01:49 | disposition short-term general hospital (02) ==
LOC: ER 20:17 → UNDOADMIN 22:01 → ERHOLD 22:01 → ER 12-03 01:49
DX: R06.02 Shortness of breath (principal); R07.89 Other chest pain; S27.0XXA Traumatic pneumothorax, initial encounter; J90 Pleural effusion, not elsewhere classified; I10 Essential (primary) hypertension; E03.9 Hypothyroidism, unspecified; F32.9 Major depressive disorder, single episode, unspecified
CPT/HCPCS: 36415; 71045 ×2; 71250; 80053; 82550; 82553; 82945; 83605; 83615; 83735; 83986; 84157; 84484; 85025; 85610; 85730; 87040; 87071; 87075; 87102; 87116; 87205; 87206 ×2; 88112; 89051; 93005; 99285; J1170; J1885; J2185; J2405; J3370; J7030; J7050; 88305; J1200

== ENCOUNTER → 2018-12-06 | Outpatient (CLI) | payer BC ==
--- NOTE | 2018-12-06 17:53 | Diagnostic Imaging Report ---
Frontal and lateral views of the chest. HISTORY: PNEUMOTHORAX COMPARISON: CT of the chest December 02, 2018. DISCUSSION: Interval removal of the chest tube. Lungs: Improved aeration of the left lung. The right lung is clear. Pleura: No visible residual pneumothorax. Heart and mediastinum: The cardiomediastinal silhouette appears unremarkable. Bones and soft tissues: Appear unremarkable. IMPRESSION: 1. Interval removal of the chest tube. 2. No evidence of a pneumothorax. Signed by: Dr. Ben Posada D.O., M.M.M. on 12/06/2018 5:50 PM
== END ==
LOC: RAD 17:10
PROVIDERS: ATTEND Family Medicine
DX: J93.9 Pneumothorax, unspecified (principal)
CPT/HCPCS: 71046